=== PATIENT | male | born 1955 | race Caucasian/White ===

== ENCOUNTER 2019-08-31 14:35 | Outpatient (CLI) | payer BC ==
--- NOTE | 2019-08-31 14:55 | RAD ---
EXAM: Chest PA and lateral: HISTORY: Pneumonitis due to inhalation COMPARISON: none FINDINGS: Lung norris are clear. Vascular markings are normal. Heart and mediastinum appear unremarkable. Osseous structures are unremarkable. IMPRESSION: No acute finding
== END 2019-08-31 14:36 | disposition home or self-care (01) ==
LOC: BICRAD 14:35
PROVIDERS: ATTEND Specialist
DX: J69.0 Pneumonitis due to inhalation of food and vomit (principal)
CPT/HCPCS: 71046